=== PATIENT | female | born 1990 | race Caucasian/White ===

== ENCOUNTER 2021-10-13 22:00 | Emergency (ER) | payer MEDICAID ==
[~2021-10-13] VITALS: Ht 157.5 cm; Wt 73.0 kg
[2021-10-13 22:47] LABS: BASOPHILS % 0.8 % (0.0-2.0); EOSINOPHILS % 6.1 % (0.0-5.0); HEMATOCRIT. 42.5 % (36.0-48.0); HEMOGLOBIN. 14.7 g/dL (12.0-16.0); LYMPHOCYTES % 34.1 % (20.0-50.0); MEAN CORPUSCULAR HEMOGLOBIN 29.9 pg (28.0-32.0); MEAN CORPUSCULAR VOLUME 86.5 fL (81.0-99.0); MEAN PLATELET VOLUME 7.2 fl (7.4-10.4); MONOCYTES % 4.6 % (2.0-8.0); NEUTROPHILS % 54.4 % (40.0-76.0); PLATELET 340 x1000/uL (130-400); RED BLOOD CELL COUNT 4.91 mill/uL (4.2-5.4); RED CELL DISTRIBUTION WIDTH 12.9 % (11.6-14.6)
[2021-10-13 22:52] LABS: CHLORIDE 102 mEq/L (98-107)
[2021-10-14 02:43] VITALS: BP 121/81
[2021-10-14] MEDS ORDERED: IOHEXOL-350 100 ML BOTTLE ONE (06:14)
== END 2021-10-14 02:44 | disposition home or self-care (01) ==
LOC: ER 22:00
DX: R06.02 Shortness of breath (principal); E03.9 Hypothyroidism, unspecified; Z97.5 Presence of (intrauterine) contraceptive device; Z86.16 Personal history of COVID-19
CPT/HCPCS: 36415; 71275; 80053; 83880; 84443; 84484; 85025; 85379; 93005; 99285; Q9967

== ENCOUNTER 2021-11-18 16:19 | Emergency (ER) | payer MEDICAID, OTHER ==
[~2021-11-18] VITALS: Ht 165.1 cm; Wt 88.0 kg
[2021-11-18] MEDS ORDERED: IBUPROFEN 600MG TABLET PO STA (16:25)
[2021-11-18 19:27] LABS: BASOPHILS % 0.7 % (0.0-2.0); EOSINOPHILS % 13.9 % (0.0-5.0); HEMATOCRIT. 41.4 % (36.0-48.0); HEMOGLOBIN. 14.3 g/dL (12.0-16.0); LYMPHOCYTES % 31.3 % (20.0-50.0); MEAN CORPUSCULAR HEMOGLOBIN 30.1 pg (28.0-32.0); MEAN CORPUSCULAR VOLUME 87.4 fL (81.0-99.0); MEAN PLATELET VOLUME 7.2 fl (7.4-10.4); NEUTROPHILS % 48.1 % (40.0-76.0); PLATELET 275 x1000/uL (130-400); RED BLOOD CELL COUNT 4.74 mill/uL (4.2-5.4); RED CELL DISTRIBUTION WIDTH 12.9 % (11.6-14.6)
[2021-11-18 19:43] LABS: CHLORIDE 105 mEq/L (98-107)
[2021-11-18 20:52] VITALS: BP 126/79
== END 2021-11-18 20:54 | disposition home or self-care (01) ==
LOC: ER 16:19
DX: M79.605 Pain in left leg (principal); E03.9 Hypothyroidism, unspecified; Z98.890 Other specified postprocedural states
CPT/HCPCS: 36415; 80048; 85025; 93971; 99284

== ENCOUNTER 2022-02-14 15:45 | Emergency (ER) | payer OTHER ==
[~2022-02-14] VITALS: Ht 165.1 cm; Wt 86.0 kg
[2022-02-14 15:56] VITALS: BP 134/87
[2022-02-14] MEDS ORDERED: ACETAMINOPHEN 325MG TABLET PO STA (18:37)
[2022-02-14] MEDS ORDERED: DICYCLOMINE 10 MG/5 ML ORAL SYR PO STA (18:37)
[2022-02-14 19:24] LABS: BASOPHILS % 0.5 % (0.0-2.0); EOSINOPHILS % 9.1 % (0.0-5.0); HEMATOCRIT. 40.8 % (36.0-48.0); HEMOGLOBIN. 14.1 g/dL (12.0-16.0); LYMPHOCYTES % 25.2 % (20.0-50.0); MEAN CORPUSCULAR HEMOGLOBIN 30.4 pg (28.0-32.0); MEAN CORPUSCULAR VOLUME 88.1 fL (81.0-99.0); MEAN PLATELET VOLUME 7.6 fl (7.4-10.4); MONOCYTES % 6.3 % (2.0-8.0); NEUTROPHILS % 58.9 % (40.0-76.0); PLATELET 311 x1000/uL (130-400); RED BLOOD CELL COUNT 4.64 mill/uL (4.2-5.4); RED CELL DISTRIBUTION WIDTH 12.6 % (11.6-14.6)
[2022-02-14 19:29] LABS: CLARITY URINE CLEAR (CLEAR); COLOR URINE YELLOW (YELLOW); KETONES URINE NEGATIVE (NEGATIVE); LEUKOCYTE ESTERASE URINE NEGATIVE (NEGATIVE); NITRITE URINE NEGATIVE (NEGATIVE); OCCULT BLOOD URINE 2+ (NEGATIVE); PH URINE 6.5 (4.5-8.0); PROTEIN URINE NEGATIVE (NEGATIVE); SPECIFIC GRAVITY URINE 1.012 (1.005-1.030); UROBILINOGEN URINE 0.2 E.U./dL (0.2-1.0)
[2022-02-14 19:40] LABS: CHLORIDE 104 mEq/L (98-107)
[2022-02-14 19:50] LABS: HCG SCREEN NEGATIVE
== END 2022-02-14 23:19 | disposition home or self-care (01) ==
LOC: ER 15:45
DX: R10.32 Left lower quadrant pain (principal); R31.9 Hematuria, unspecified; R03.0 Elevated blood-pressure reading, without diagnosis of hypertension; E03.9 Hypothyroidism, unspecified; Z98.84 Bariatric surgery status
CPT/HCPCS: 36415; 76705; 80053; 81003; 84703; 85025; 93005; 99285

== ENCOUNTER 2022-03-09 12:48 | Emergency (ER) | payer MEDICAID, OTHER ==
[~2022-03-09] VITALS: Ht 165.1 cm; Wt 90.5 kg
[2022-03-09] MEDS ORDERED: SODIUM CHLORIDE 0.9% 1,000 ML IV ONE (13:30)
[2022-03-09 13:35] LABS: BASOPHILS % 0.8 % (0.0-2.0); EOSINOPHILS % 6.5 % (0.0-5.0); HEMATOCRIT. 42.6 % (36.0-48.0); HEMOGLOBIN. 14.6 g/dL (12.0-16.0); LYMPHOCYTES % 25.1 % (20.0-50.0); MEAN CORPUSCULAR HEMOGLOBIN 30.4 pg (28.0-32.0); MEAN CORPUSCULAR VOLUME 88.5 fL (81.0-99.0); MEAN PLATELET VOLUME 7.7 fl (7.4-10.4); MONOCYTES % 6.3 % (2.0-8.0); NEUTROPHILS % 61.3 % (40.0-76.0); PLATELET 322 x1000/uL (130-400); RED BLOOD CELL COUNT 4.82 mill/uL (4.2-5.4); RED CELL DISTRIBUTION WIDTH 13.1 % (11.6-14.6)
[2022-03-09 13:42] LABS: CHLORIDE 103 mEq/L (98-107)
[2022-03-09 13:52] LABS: HCG SCREEN NEGATIVE
[2022-03-09 14:00] LABS: CLARITY URINE CLEAR (CLEAR); COLOR URINE YELLOW (YELLOW); KETONES URINE NEGATIVE (NEGATIVE); LEUKOCYTE ESTERASE URINE NEGATIVE (NEGATIVE); NITRITE URINE NEGATIVE (NEGATIVE); OCCULT BLOOD URINE 1+ (NEGATIVE); PROTEIN URINE NEGATIVE (NEGATIVE); SPECIFIC GRAVITY URINE 1.002 (1.005-1.030); UROBILINOGEN URINE 0.2 E.U./dL (0.2-1.0)
[2022-03-09 14:41] LABS: *AMPHETAMINES SCREEN URINE NEGATIVE (NEGATIVE); *BARBITURATES SCREEN URINE NEGATIVE (NEGATIVE); *BENZODIAZEPINES SCREEN URINE NEGATIVE (NEGATIVE); *COCAINE SCREEN URINE NEGATIVE (NEGATIVE); CANNABINOID URINE SCREEN NEGATIVE (NEGATIVE); METHADONE URINE SCREEN NEGATIVE (NEGATIVE); OPIATES URINE SCREEN NEGATIVE (NEGATIVE); PHENCYCLIDINE URINE SCREEN NEGATIVE (NEGATIVE)
[2022-03-09 16:23] VITALS: BP 113/65
[2022-03-09 16:33] LABS: INR 1.1; PROTHROMBIN TIME 11.4 sec (9.6-11.0)
[2022-03-10] MEDS ORDERED: P20 MT (03:35)
[2022-03-10] MEDS ORDERED: EPIN0.3P3 IM (03:35)
[2022-03-10] MEDS ORDERED: DIPH25TA24 MT (03:35)
== END 2022-03-09 18:30 | disposition home or self-care (01) ==
LOC: ER 13:11
DX: R53.1 Weakness (principal); E03.9 Hypothyroidism, unspecified
CPT/HCPCS: 36415; 70450; 70551; 80053; 80305; 81003; 82962; 84443; 84703; 85025; 85610; 93005; 96360; 96361; 99285; J7030

== ENCOUNTER 2022-03-10 00:36 | Emergency (ER) | payer MEDICAID, OTHER ==
[~2022-03-10] VITALS: Ht 165.1 cm; Wt 87.0 kg
[2022-03-10 01:00] VITALS: BP 128/70
[2022-03-10] MEDS ORDERED: FAMOTIDINE 20MG/2ML VIAL IV ONE (01:00)
[2022-03-10] MEDS ORDERED: EPINEPHRINE 1:1000 1 MG/ML AMP IM ONE (01:00)
[2022-03-10] MEDS ORDERED: DIPHENHYDRAMINE 50MG/ML VIAL IV ONE (01:00)
[2022-03-10] MEDS ORDERED: METHYLPREDNISOLONE SOD SUCC 125 MG/2 ML VIAL IV ONE (01:00)
[2022-03-10] MEDS: ALBUTEROL (0.083%) 2.5MG/3ML NEB HHN SCH ×2 (02:38→03:19)
[2022-03-10] MEDS ORDERED: DIPH25TA24 MT (03:35)
[2022-03-10] MEDS ORDERED: P20 MT (03:35)
[2022-03-10] MEDS ORDERED: EPIN0.3P3 IM (03:35)
== END 2022-03-10 04:27 | disposition home or self-care (01) ==
LOC: ER 00:36
DX: T78.2XXA Anaphylactic shock, unspecified, initial encounter (principal); E03.9 Hypothyroidism, unspecified
CPT/HCPCS: 81025; 94640; 96372; 96374; 96375; 99291; J1200; J2930; J3490; Z7610

== ENCOUNTER 2022-10-20 19:31 | Emergency (ER) | payer MEDICAID, OTHER ==
[~2022-10-20] VITALS: Ht 165.1 cm; Wt 70.0 kg
[~2022-10-20 19:31] MED LIST: DIPH25TA24 MT; EPIN0.3P3 IM; P20 MT
[2022-10-20 20:03] VITALS: BP 123/63
[2022-10-20] MEDS ORDERED: PREDNISONE 20MG TABLET PO ONE (20:15)
[2022-10-20] MEDS ORDERED: PREDNISONE 20MG TABLET PO NR (22:15)
[2022-10-20] MEDS ORDERED: EPIN0.3A3 IM ×2 (22:23)
[2022-10-20] MEDS ORDERED: P20 MT ×2 (22:28→22:32)
[2022-10-20] MEDS ORDERED: EPIN0.3P3 IM (22:31)
[2022-10-20] MEDS ORDERED: DIPH25TA24 MT (22:31)
== END 2022-10-20 23:03 | disposition home or self-care (01) ==
LOC: ER 19:31
DX: T78.40XA Allergy, unspecified, initial encounter (principal); X58.XXXA Exposure to other specified factors, initial encounter; E03.9 Hypothyroidism, unspecified
CPT/HCPCS: 99283; J7512

== ENCOUNTER 2022-11-08 19:32 | Emergency (ER) | payer OTHER ==
[~2022-11-08] VITALS: Ht 165.1 cm; Wt 89.9 kg
[2022-11-08] MEDS ORDERED: METHYLPREDNISOLONE SOD SUCC 125 MG/2 ML VIAL IV ONE (20:30)
[2022-11-08] MEDS ORDERED: DIPHENHYDRAMINE 50MG/ML VIAL IV ONE (20:30)
[2022-11-08] MEDS ORDERED: SODIUM CHLORIDE 0.9% 500 ML IV ONE (20:30)
[2022-11-08] MEDS ORDERED: FAMOTIDINE 20MG/2ML VIAL IV ONE (20:30)
[2022-11-08] MEDS ORDERED: P50 MT (22:35)
[2022-11-08] MEDS ORDERED: EPIN0.3A3 IM (22:36)
[2022-11-08] MEDS ORDERED: DIPH25TA24 MT (22:36)
[2022-11-09] VITALS: BP 124/72
== END 2022-11-09 | disposition home or self-care (01) ==
LOC: ER 19:36
DX: T78.40XA Allergy, unspecified, initial encounter (principal); X58.XXXA Exposure to other specified factors, initial encounter; E03.9 Hypothyroidism, unspecified; Z91.013 Allergy to seafood
CPT/HCPCS: 96361; 96374; 96375; 99284; J1200; J2930; J3490; J7040; Z7610

== ENCOUNTER 2023-02-27 21:37 | Emergency (ER) | payer OTHER ==
[~2023-02-27] VITALS: Ht 165.1 cm; Wt 89.2 kg
[~2023-02-27 21:37] MED LIST changes: +EPIN0.3A3 IM; +P50 MT
[2023-02-27 21:42] VITALS: BP 120/76; PULSE 92; RESP 18; TEMP 98.4; O2SAT 98
== END 2023-02-28 01:31 | disposition left against medical advice (07) ==
LOC: ER 21:37
DX: Z53.21 Procedure and treatment not carried out due to patient leaving prior to being seen by health care provider (principal)
CPT/HCPCS: 99281

== ENCOUNTER 2023-06-21 19:52 | Emergency (ER) | payer OTHER ==
[~2023-06-21] VITALS: Ht 175.3 cm; Wt 87.0 kg
[2023-06-21 20:13] VITALS: O2SAT 100
[2023-06-21 20:32] LABS: BASOPHILS % 0.7 % (0.0-2.0); EOSINOPHILS % 6.8 % (0.0-5.0); HEMATOCRIT. 41.3 % (36.0-48.0); HEMOGLOBIN. 14.3 g/dL (12.0-16.0); LYMPHOCYTES % 25.7 % (20.0-50.0); MEAN CORPUSCULAR HEMOGLOBIN 30.3 pg (28.0-32.0); MEAN CORPUSCULAR HGB CONC 34.6 g/dL (31.0-37.0); MEAN CORPUSCULAR VOLUME 87.4 fL (81.0-99.0); MEAN PLATELET VOLUME 7.1 fl (7.4-10.4); MONOCYTES % 6.7 % (2.0-8.0); NEUTROPHILS % 60.1 % (40.0-76.0); PLATELET 294 x1000/uL (130-400); RED BLOOD CELL COUNT 4.72 mill/uL (4.2-5.4); RED CELL DISTRIBUTION WIDTH 12.8 % (11.6-14.6); WHITE BLOOD COUNT 9.2 x1000/uL (4.5-11.0)
[2023-06-21 20:39] LABS: CHLORIDE 106 mEq/L (98-107); INDEX HEMOLYSI 1 (1-3); INDEX ICTERIC 1 (1-4); INDEX LIPEMIC 1 (1-3); POTASSIUM 3.7 mEq/L (3.5-5.1); SODIUM 138 mEq/L (136-145)
[2023-06-21 20:48] LABS: ALANINE AMINOTRANSFERASE 18 IU/L (13-61); ASPARTATE AMINOTRANSFERASE 14 IU/L (15-37); BILIRUBIN TOTAL 0.3 mg/dL (0.1-1.0); CALCIUM 8.5 mg/dL (8.5-10.1); CARBON DIOXIDE 26 mEq/L (21-32); CREATININE 0.7 mg/dL (0.6-1.3); GLUCOSE 87 mg/dL (70-105); PROTEIN TOTAL 7.8 g/dL (6.0-8.3); UREA NITROGEN BLOOD 12 mg/dL (7-21)
[2023-06-21 20:51] LABS: CLARITY URINE CLEAR (CLEAR); COLOR URINE YELLOW (YELLOW); GLUCOSE URINE NEGATIVE (NEGATIVE); KETONES URINE NEGATIVE (NEGATIVE); LEUKOCYTE ESTERASE URINE 2+ (NEGATIVE); NITRITE URINE NEGATIVE (NEGATIVE); OCCULT BLOOD URINE TRACE (NEGATIVE); PROTEIN URINE NEGATIVE (NEGATIVE); SPECIFIC GRAVITY URINE 1.009 (1.005-1.030); UROBILINOGEN URINE 0.2 E.U./dL (0.2-1.0)
[2023-06-21 20:54] LABS: BACTERIA URINE 2+; YEAST URINE NONE SEEN
[2023-06-21 21:11] LABS: SQUAMOUS EPITHELIAL CELL URINE 1+ /lpf (RARE/1+)
[2023-06-21 21:12] LABS: RBC URINE 0-2 /hpf (0-2)
[2023-06-21] MEDS ORDERED: IBUPROFEN 400MG TABLET PO ONE (23:30)
[2023-06-21] MEDS ORDERED: MAGNESIUM/ALUMINUM HYDROXIDE/SIMETHICONE 30ML UDC PO ONE (23:30)
[2023-06-21 23:50] VITALS: BP 101/72
[2023-06-22] MEDS ORDERED: IBUP-2028 MT (00:31)
[2023-06-22] MEDS ORDERED: CEPH500C2 MT (00:31)
[2023-06-22 00:51] VITALS: PULSE 75; RESP 20; TEMP 98.7
== END 2023-06-22 00:52 | disposition home or self-care (01) ==
LOC: ER 19:52
DX: N39.0 Urinary tract infection, site not specified (principal); R10.11 Right upper quadrant pain; E78.00 Pure hypercholesterolemia, unspecified; E03.9 Hypothyroidism, unspecified; Z91.013 Allergy to seafood
CPT/HCPCS: 36415; 76705; 80053; 81003; 81025; 85025; 99283; 99284

== ENCOUNTER 2025-06-06 21:37 | Emergency (ER) | payer OTHER ==
[~2025-06-06] VITALS: Ht 165.1 cm; Wt 91.0 kg
[~2025-06-06 21:37] MED LIST changes: +CEPH500C2 MT; +IBUP-2028 MT
[2025-06-06 21:41] VITALS: O2SAT 97
[2025-06-06] MEDS ORDERED: SODIUM CHLORIDE 0.9% 1,000 ML IV STA (21:48)
[2025-06-06] MEDS ORDERED: METHYLPREDNISOLONE SOD SUCC 125MG/2ML (ACT-O-VIAL) IV ONE (22:00)
[2025-06-06] MEDS ORDERED: EPINEPHRINE 1:1000 1 MG/ML AMP IM ONE (22:00)
[2025-06-06] MEDS ORDERED: DIPHENHYDRAMINE 50MG/ML VIAL IV ONE (22:00)
[2025-06-06 22:30] VITALS: BP 120/68; PULSE 72; RESP 12; TEMP 36.5; O2SAT 97
[2025-06-06] MEDS ORDERED: EPIN0.3P3 IM (22:33)
[2025-06-06] MEDS ORDERED: P50 MT (22:34)
== END 2025-06-06 22:51 | disposition left against medical advice (07) ==
LOC: ER 21:37 → CMPBEDREQ 06-07 07:21
DX: T78.40XA Allergy, unspecified, initial encounter (principal); F10.90 Alcohol use, unspecified, uncomplicated; Z79.899 Other long term (current) drug therapy; Y92.89 Other specified places as the place of occurrence of the external cause; Y90.9 Presence of alcohol in blood, level not specified
CPT/HCPCS: 99283; J7030; Z7610 ×2; A4606